=== PATIENT | female | born 1970 | race American Indian/Alaskan Native ===

== ENCOUNTER 2018-02-01 15:05 | Emergency (ER) | payer SELFPAY ==
[2018-02-01 15:30] VITALS: BP 144/89
[2018-02-01 16:13] LABS: Basophils % (Auto) 0.8 % (0.0-1.8); Eosinophils # (Auto) 0.1 K/mm3 (0.0-0.4); Eosinophils % (Auto) 0.9 % (0.0-4.3); Hematocrit 34.1 % (30.3-42.9); Hemoglobin 9.8 gm/dl (10.1-14.3); Lymphocytes # (Auto) 1.8 K/mm3 (1.2-5.4); Lymphocytes % (Auto) 28.8 % (13.4-35.0); Mean Corpuscular HGB Conc 29 % (30-34); Mean Corpuscular Hemoglobin 18 pg (28-32); Mean Corpuscular Volume 64 fl (79-97); Monocytes # (Auto) 0.4 K/mm3 (0.0-0.8); Monocytes % (Auto) 5.7 % (0.0-7.3); Platelet Count 299 K/mm3 (140-440); Red Blood Count 5.31 M/mm3 (3.65-5.03); Red Cell Distribution Width 18.3 % (13.2-15.2)
[2018-02-01 16:18] LABS: Bacteria,Urine 1+ /HPF (Negative); Bilirubin,Urine NEG (Negative); Blood,Urine NEG (Negative); Color,Urine Yellow (Yellow); Protein,Urine <15 mg/dL mg/dL (Negative); Urobilinogen,Urine < 2.0 mg/dL (<2.0)
[2018-02-01 16:22] LABS: BUN/Creatinine Ratio 22; Blood Urea Nitrogen 11 mg/dL (7-17); Calcium 9.3 mg/dL (8.4-10.2); Hemolysis Index 0
== END 2018-02-01 16:02 | disposition left against medical advice (07) ==
LOC: ED 15:05
DX: R73.9 Hyperglycemia, unspecified (principal); Z53.21 Procedure and treatment not carried out due to patient leaving prior to being seen by health care provider
CPT/HCPCS: 36415; 80048; 81001; 82140; 82805; 82962; 85025

== ENCOUNTER 2020-11-06 10:48 | Inpatient (IN) | payer OTHER ==
[2020-11-06 11:39] LABS: Bacteria,Urine 2+ /HPF (Negative); Bilirubin,Urine NEG (Negative); Blood,Urine NEG (Negative); Color,Urine Yellow (Yellow); Mucus,Urine FEW /HPF; Protein,Urine <15 mg/dL mg/dL (Negative); Urobilinogen,Urine < 2.0 mg/dL (<2.0)
[2020-11-06 11:44] LABS: Basophils % (Auto) 0.4 % (0.0-1.8); Eosinophils # (Auto) 0.1 K/mm3 (0.0-0.4); Eosinophils % (Auto) 0.9 % (0.0-4.3); Hemoglobin 10.1 gm/dl (10.1-14.3); Lymphocytes % (Auto) 11.7 % (13.4-35.0); Mean Corpuscular HGB Conc 30 % (30-34); Mean Corpuscular Volume 73 fl (79-97); Monocytes # (Auto) 0.7 K/mm3 (0.0-0.8); Monocytes % (Auto) 7.9 % (0.0-7.3); Platelet Count 392 K/mm3 (140-440); Red Blood Count 4.67 M/mm3 (3.65-5.03)
[2020-11-06 11:58] LABS: Alanine Aminotransferase 8 units/L (7-56); Albumin 3.2 g/dL (3.9-5); Blood Urea Nitrogen 7 mg/dL (7-17); Calcium 9.1 mg/dL (8.4-10.2); Hemolysis Index 18
[2020-11-06 12:03] LABS: BUN/Creatinine Ratio 12
[2020-11-06] MEDS ORDERED: SODIUM CHLORIDE 0.9% 1000 ML 1,000 ML IV ONE (12:12)
[2020-11-06] MEDS ORDERED: MORPHINE 4 MG/1 ML INJ IV ONE ×2 (12:20→14:00)
[2020-11-06] MEDS ORDERED: ONDANSETRON 4 MG/2 ML INJ IV ONE (12:20)
--- NOTE | 2020-11-06 13:03 | Emergency Department Report ---
ED Abdominal Pain HPI - General Chief Complaint: Abdominal Pain Stated Complaint: RT SIDE PAIN/UTI Time Seen by Provider: 11/06/20 11:05 Source: patient Mode of arrival: Ambulatory Limitations: No Limitations - History of Present Illness Initial Comments: 50-year-old female with past medical history of diabetes who presents to the emergency department with complaint of right lower quadrant abdominal pain. Patient reports histories of her tubal ligation. She states she still undergoes her menstrual cycle. She denies history of appendectomy or cholecystectomy. She states her pain is in the right lower quadrant is sharp and radiates from the front to the back. Patient states she has been eating and drinking normally has not had nausea or vomiting. Patient has had some diarrhea with no constipation. She denies any fevers chills or coughing has not had any positive Covid contacts. She thinks she may have a UTI. Severity scale (0 -10): 8 - Related Data Previous Rx's Medication Instructions Recorded Last Taken Type Ibuprofen [Motrin] 800 mg PO Q8HR PRN #15 tablet 09/05/16 Unknown Rx Sulfamethoxazole/Trimethoprim 1 each PO BID #14 tablet 09/05/16 Unknown Rx [Bactrim DS TAB] Allergies Allergy/AdvReac Type Severity Reaction Status Date / Time No Known Allergies Allergy Unverified 09/05/16 01:06 ED Review of Systems ROS: Stated complaint: RT SIDE PAIN/UTI Other details as noted in HPI Constitutional: denies: chills, fever Eyes: denies: eye discharge ENT: denies: throat pain Respiratory: denies: shortness of breath Cardiovascular: denies: chest pain Endocrine: no symptoms reported Gastrointestinal: abdominal pain, diarrhea. denies: nausea, vomiting, constipation Genitourinary: dysuria, frequency Musculoskeletal: denies: back pain Skin: denies: rash Neurological: denies: headache, weakness Psychiatric: denies: anxiety, depression Hematological/Lymphatic: denies: easy bleeding ED Past Medical Hx - Past Medical History Previous Medical History?: Yes Hx Diabetes: Yes - Surgical History Additional Surgical History: tubal ligation - Social History Smoking Status: Never Smoker Substance Use Type: None - Medications Home Medications: Home Medications Medication Instructions Recorded Confirmed Last Taken Type Ibuprofen [Motrin] 800 mg PO Q8HR PRN #15 tablet 09/05/16 Unknown Rx Sulfamethoxazole/Trimethoprim 1 each PO BID #14 tablet 09/05/16 Unknown Rx [Bactrim DS TAB] ED Physical Exam - General Limitations: No Limitations General appearance: alert, in distress - Head Head exam: Present: atraumatic, normocephalic - Eye Eye exam: Present: normal appearance Pupils: Present: normal accommodation - ENT ENT exam: Present: normal exam - Neck Neck exam: Present: normal inspection - Respiratory Respiratory exam: Present: normal lung sounds bilaterally. Absent: respiratory distress - Cardiovascular Cardiovascular Exam: Present: regular rate, normal rhythm, normal heart sounds - GI/Abdominal GI/Abdominal exam: Present: soft, tenderness (RLQ), guarding, rebound - Rectal Rectal exam: Present: deferred - Extremities Exam Extremities exam: Present: normal inspection - Back Exam Back exam: Present: normal inspection - Neurological Exam Neurological exam: Present: alert, oriented X3 - Psychiatric Psychiatric exam: Present: normal affect - Skin Skin exam: Present: warm, dry, intact ED Course Vital Signs 11/06/20 11/06/20 11/06/20 11:06 12:50 13:00 Temperature Pulse Rate 113 H 101 H 98 H Respiratory 18 19 20 Rate Blood Pressure 159/88 135/83 Blood Pressure [Left] O2 Sat by Pulse 97 Oximetry 11/06/20 11/06/20 11/06/20 13:30 15:00 15:30 Temperature Pulse Rate 97 H 92 H Respiratory 21 21 19 Rate Blood Pressure 145/77 122/63 121/69 Blood Pressure [Left] O2 Sat by Pulse 93 93 97 Oximetry 11/06/20 16:51 Temperature 99.7 F H Pulse Rate 88 Respiratory 18 Rate Blood Pressure Blood Pressure 121/78 [Left] O2 Sat by Pulse 99 Oximetry - Reevaluation(s) Reevaluation #1: 11/06/20 13:56 CT scan shows 5 cm abscess near the right renal pole. I informed patient of piedad sherman. I have also ordered blood cultures, lactic acid, Vanc, Zosyn. 11/06/20 19:16 - Consultations Consultation #1: 11/06/20 13:[address] Gerardo who states that we may need urology given this we may need to transfer patient. 11/06/20 19:14 Consultation #2: 11/06/20 19:15 Unfortunately there are no more beds in the [facility]. We spoke to hospitals including [facility] both of which their systems are not accepting transfer. We have frequent discussions with [facility] who states that they cannot accept the patient. We spoke again to Dr. Gerardo that he will drainage. Patient may need urology in the future for backup and likely follow- up. ED Medical Decision Making - Lab Data Result diagrams: 11/06/20 11:14 11/06/20 14:23 - Radiology Data Radiology results: report reviewed - Medical Decision Making Patient is a 50-year-old female who presents to the emergency department hallway of abdominal pain. Patient pain that radiates is localized to the right lower quadrant and radiates from the front to the back. Differential includes appendicitis, nephrolithiasis, pyelonephritis. Patient was evaluated in triage and was noted to be hyperglycemic to the 600s. She does not appear to currently be in DKA however we will give IV fluids and likely some subcu insulin in order to manage her hyperglycemia. CT scan is ordered and patient is receiving IV fluids, Zofran, morphine. Critical care attestation.: If time is entered above; I have spent that time in minutes in the direct care of this critically ill patient, excluding procedure time. ED Disposition Clinical Impression: Perinephric abscess Disposition: [id number] OP ADMIT IP TO THIS HOSP Is pt being admited?: Yes Does the pt Need Aspirin: No Condition: Stable Instructions: Abdominal Pain (ED) Referrals: PRIMARY CARE, [Primary Care Provider] - 3-5 Days
--- NOTE | 2020-11-06 13:16 | Cat Scan Report ---
CT ABDOMEN AND PELVIS WITH CONTRAST INDICATION / CLINICAL INFORMATION: MAIN. TECHNIQUE: Axial CT images were obtained through the abdomen and pelvis after 100 cc Omni [address] scans at this location are performed using CT dose reduction for ALARA by means of automated expos ure control. COMPARISON: None available. FINDINGS: LOWER CHEST: Subsegmental linear opacities in the right lower lung could represent platelike atelecta sis. Upper limits of normal cardiac size. HEPATOBILIARY: Enlarged liver with diffuse fatty infiltration. No focal lesion is identified. Periphe ral calcifications in the gallbladder suggest few 2-3 cm calcified gallstones. No pericholecystic flu id or inflammatory change. No significant biliary ductal dilatation. PANCREAS/SPLEEN/ADRENALS: No significant abnormality. GENITOURINARY: 4.5 x 4.3 x 5.0 cm multiloculated, thick-walled collection adjacent to the lateral asp ect of the inferior right renal pole. Moderate adjacent inflammatory change extending along the retro peritoneal soft tissue planes. Mild right hydroureteronephrosis is present. No nephrolithiasis or marco dence of obstructing stone. Left kidney appears normal. Bladder demonstrates no significant abnormali ty. GASTROINTESTINAL/MESENTERY: Appendix does not appear inflamed and there is no pericecal inflammatory change. No bowel obstruction or inflammation. No free air or significant free fluid. RETROPERITONEUM: Right-sided inflammatory change as described above. No significant adenopathy. REPRODUCTIVE ORGANS: Enlarged fibroid uterus. Conglomeration of fibroids measure approximately 8.6 x 13.0 x 13.8 cm in AP by TV by CC dimension. VASCULAR: No significant abnormality. BODY WALL: No significant abnormality. SKELETAL SYSTEM: No significant abnormality. IMPRESSION: 1. 5 cm multiloculated thick-walled collection at the lateral aspect of the inferior right renal pole concerning for abscess. Additionally, there is moderate surrounding inflammatory change and mild dil atation of the right collecting system and ureter. Findings could represent concomitant polynephritis . Recommend clinical correlation and further follow-up as warranted. 2. Enlarged fatty liver. 3. Very enlarged fibroid uterus. Consider further evaluation as warranted. 4. Peripheral calcifications in the gallbladder possibly representing large peripherally calcified st ones. Consider further evaluation with gallbladder ultrasound. 5. Additional findings as above. Signer Name: Lcu Somers MD Signed: 11/06/2020 1:12 PM Workstation Name: [id number]
[2020-11-06] MEDS ORDERED: INSULIN REGULAR, HUMAN 100 UNIT/ML 3ML VIAL SUB-Q ONE (13:59)
[2020-11-06] MEDS ORDERED: VANCOMYCIN PHARMACY TO DOSE IV SCH (14:00)
[2020-11-06] MEDS ORDERED: VANCOMYCIN 1,500 MG in SODIUM CHLORIDE 0.9% 500 ML 500 ML IV ONE (14:00)
[2020-11-06] MEDS ORDERED: PIPERACIL/TAZOBACTA 4.5/NS 100 4.5 GM/100 ML VIAL IV ONE (14:00)
[2020-11-06] MEDS ORDERED: INSULIN REGULAR, HUMAN 100 UNITS/1 ML ONE (14:15)
[2020-11-06 14:58] LABS: Blood Urea Nitrogen 6 mg/dL (7-17); Calcium 8.6 mg/dL (8.4-10.2); Hemolysis Index 10
[2020-11-06] MEDS ORDERED: VANCOMYCIN 2,000 MG in SODIUM CHLORIDE 0.9% 500 ML 500 ML IV ONE (15:00)
[2020-11-06 15:32] LABS: BUN/Creatinine Ratio 12
--- NOTE | 2020-11-06 18:54 | Event Note ---
Date: 11/06/20 Consuted for right spike-nephric fluid collection. Despite the best efforts of the ER staff, the nearest hospital with urology coverage is in either [place] or [place]. [facility] is willing to consult on the patient. With the understanding that Covid 19 has made it impossible to transfer this patient, recommend that the patient be admitted to medicine and stabilized with plan for aspiration/drainage placement tomorrow.
--- NOTE | 2020-11-06 21:52 | History and Physical Report ---
History of Present Illness Date of examination: 11/06/20 Date of admission: 11/06/20 Chief complaint: Right flank pain History of present illness: 50-year-old -[place] female with history of hypertension and uncontrolled diabetes comes in for right flank pain for the last 2 to 3 days. Patient has intact appendix and gallbladder. Pain radiates from the right lower quadrant to the back. Patient also denies any fever chills or cough. No exposure to coronavirus. Pain is about 5 on a scale of 1-10. Intermittent in nature and dull in nature. No dysuria present. Past Medical History Previous Medical History?: Yes --Diabetes: Yes - Surgical History Additional Surgical History: tubal ligation - Social History Smoking Status: Never Smoker Substance Use Type: None - Medications Home Medications: Home Medications Medication Instructions Recorded Confirmed Last Taken Type Ibuprofen [Motrin] 800 mg PO Q8HR PRN #15 tablet 09/05/16 Unknown Rx Sulfamethoxazole/Trimethoprim 1 each PO BID #14 tablet 09/05/16 Unknown Rx [Bactrim DS TAB] Review of Systems ROS: Stated complaint: RT SIDE PAIN/UTI Other details as noted in HPI Constitutional: denies: chills, fever Eyes: denies: eye discharge ENT: denies: throat pain Respiratory: denies: shortness of breath Cardiovascular: denies: chest pain Endocrine: no symptoms reported Gastrointestinal: abdominal pain, diarrhea. denies: nausea, vomiting, constipation Genitourinary: dysuria, frequency Musculoskeletal: denies: back pain Skin: denies: rash Neurological: denies: headache, weakness Psychiatric: denies: anxiety, depression Hematological/Lymphatic: denies: easy bleeding - Medications and Allergies Allergies Allergy/AdvReac Type Severity Reaction Status Date / Time No Known Allergies Allergy Unverified 09/05/16 01:06 Home Medications Medication Instructions Recorded Confirmed Last Taken Type Ibuprofen [Motrin] 800 mg PO Q8HR PRN #15 tablet 09/05/16 Unknown Rx Sulfamethoxazole/Trimethoprim 1 each PO BID #14 tablet 09/05/16 Unknown Rx [Bactrim DS TAB] Exam - Constitutional Vitals: Temp Pulse Resp BP Pulse Ox 98.6 F 95 H 14 148/77 97 11/06/20 20:09 11/06/20 20:09 11/06/20 20:10 11/06/20 20:09 11/06/20 20:10 General appearance: Present: no acute distress, well-nourished - EENT Eyes: Present: PERRL ENT: hearing intact, clear oral mucosa - Neck Neck: Present: supple, normal ROM - Respiratory Respiratory effort: normal Respiratory: bilateral: CTA - Cardiovascular Heart rate: 88 Rhythm: regular Heart Sounds: Present: S1 & S2. Absent: rub, click - Extremities Extremities: no ischemia, pulses symmetrical, No edema Peripheral Pulses: within normal limits - Abdominal General gastrointestinal: Present: soft, non-tender, non-distended, normal bowel sounds Female genitourinary: Present: normal - Rectal Rectal Exam: deferred - Integumentary Integumentary: Present: clear, warm, dry - Musculoskeletal Musculoskeletal: gait normal, strength equal bilaterally - Psychiatric Psychiatric: appropriate mood/affect, intact judgment & insight - Neurologic Neurologic: CNII-XII intact, moves all extremities - Allied Health Allied health notes reviewed: nursing, case management Results - Labs CBC & Chem 7: 11/06/20 11:14 11/06/20 14:23 Labs: Laboratory Last Values WBC 8.5 K/mm3 (4.5-11.0) 11/06/20 11:14 RBC 4.67 M/mm3 (3.65-5.03) 11/06/20 11:14 Hgb 10.1 gm/dl (10.1-14.3) 11/06/20 11:14 Hct 34.0 % (30.3-42.9) 11/06/20 11:14 MCV 73 fl (79-97) L 11/06/20 11:14 MCH 22 pg (28-32) L 11/06/20 11:14 MCHC 30 % (30-34) 11/06/20 11:14 RDW 17.0 % (13.2-15.2) H 11/06/20 11:14 Plt Count 392 K/mm3 (140-440) 11/06/20 11:14 Lymph % (Auto) 11.7 % (13.4-35.0) L 11/06/20 11:14 Dane % (Auto) 7.9 % (0.0-7.3) H 11/06/20 11:14 Eos % (Auto) 0.9 % (0.0-4.3) 11/06/20 11:14 Baso % (Auto) 0.4 % (0.0-1.8) 11/06/20 11:14 Lymph # (Auto) 1.0 K/mm3 (1.2-5.4) L 11/06/20 11:14 Dane # (Auto) 0.7 K/mm3 (0.0-0.8) 11/06/20 11:14 Eos # (Auto) 0.1 K/mm3 (0.0-0.4) 11/06/20 11:14 Baso # (Auto) 0.0 K/mm3 (0.0-0.1) 11/06/20 11:14 Seg Neutrophils % 79.1 % (40.0-70.0) H 11/06/20 11:14 Seg Neutrophils # 6.7 K/mm3 (1.8-7.7) 11/06/20 11:14 Sodium 132 mmol/L (137-145) L 11/06/20 14:23 Potassium 4.3 mmol/L (3.6-5.0) 11/06/20 14:23 Chloride 94.7 mmol/L (98-107) L 11/06/20 14:23 Carbon Dioxide 30 mmol/L (22-30) 11/06/20 14:23 Anion Gap 12 mmol/L 11/06/20 14:23 BUN 6 mg/dL (7-17) L 11/06/20 14:23 Creatinine 0.5 mg/dL (0.6-1.2) L 11/06/20 14:23 Estimated GFR > 60 ml/min 11/06/20 14:23 BUN/Creatinine Ratio 12 % 11/06/20 14:23 Glucose 520 mg/dL (65-100) H* 11/06/20 14:23 POC Glucose 270 mg/dL (70-105) H 11/06/20 18:25 Lactic Acid 1.30 mmol/L (0.7-2.0) 11/06/20 14:23 Calcium 8.6 mg/dL (8.4-10.2) 11/06/20 14:23 Total Bilirubin < 0.20 mg/dL (0.1-1.2) 11/06/20 11:14 AST 13 units/L (5-40) 11/06/20 11:14 ALT 8 units/L (7-56) 11/06/20 11:14 Alkaline Phosphatase 127 units/L (35-129) 11/06/20 11:14 Total Protein 8.4 g/dL (6.3-8.2) H 11/06/20 11:14 Albumin 3.2 g/dL (3.9-5) L 11/06/20 11:14 Albumin/Globulin Ratio 0.6 % 11/06/20 11:14 HCG, Qual Negative (Negative) 11/06/20 13:04 Urine Color Yellow (Yellow) 11/06/20 Unknown Urine Turbidity Hazy (Clear) 11/06/20 Unknown Urine pH 6.0 (5.0-7.0) 11/06/20 Unknown Ur Specific [place] 1.026 (1.003-1.030) 11/06/20 Unknown Urine Protein <15 mg/dl mg/dL (Negative) 11/06/20 Unknown Urine Glucose (UA) >=500 mg/dL (Negative) 11/06/20 Unknown Urine Ketones Neg mg/dL (Negative) 11/06/20 Unknown Urine Blood Neg (Negative) 11/06/20 Unknown Urine Nitrite Neg (Negative) 11/06/20 Unknown Urine Bilirubin Neg (Negative) 11/06/20 Unknown Urine Urobilinogen < 2.0 mg/dL (<2.0) 11/06/20 Unknown Ur Leukocyte Esterase Sm (Negative) 11/06/20 Unknown Urine WBC (Auto) 40.0 /HPF (0.0-6.0) H 11/06/20 Unknown Urine RBC (Auto) 5.0 /HPF (0.0-6.0) 11/06/20 Unknown U Epithel Cells (Auto) 2.0 /HPF (0-13.0) 11/06/20 Unknown Urine Bacteria (Auto) 2+ /HPF (Negative) 11/06/20 Unknown Urine Mucus Few /HPF 11/06/20 Unknown Microbiology: Microbiology 11/06/20 14:23 Peripheral/Venous Blood Culture - Preliminary Culture in Progress 11/06/20 14:23 Peripheral/Venous Blood Culture - Preliminary Culture in Progress - Imaging and Cardiology Imaging and Cardiology: CT abdomen IMPRESSION: 1. 5 cm multiloculated thick-walled collection at the lateral aspect of the inferior right renal pole concerning for abscess. Additionally, there is moderate surrounding inflammatory change and mild dilatation of the right collecting system and ureter. Findings could represent concomitant polynephritis. Recommend clinical correlation and further follow-up as warranted. 2. Enlarged fatty liver. 3. Very enlarged fibroid uterus. Consider further evaluation as warranted. 4. Peripheral calcifications in the gallbladder possibly representing large peripherally calcified stones. Consider further evaluation with gallbladder ultrasound. 5. Additional findings as above. Duque/IV: IV Catheter Type [Right INT / Saline Lock Antecubital] Assessment and Plan Advance Directives: Yes (+) - Patient Problems (1) Perinephric abscess Current Visit: Yes Status: Acute Plan to address problem: Pending cultures patient was started on IV Zosyn IR consulted for possible drainage of the abscess perinephric abscess Urology also consulted and informed (2) Pyelonephritis Current Visit: Yes Status: Acute Plan to address problem: Patient started on IV Zosyn for the perinephric abscess Check urine cultures (3) Uncontrolled diabetes mellitus Current Visit: Yes Status: Chronic Qualifiers: Diabetes mellitus type: type 2 Plan to address problem: Patient has high blood glucose levels Patient started on long-acting insulin at 35 units and also short-acting insulin every 4 hours at high doses Patient counseled about her high hemoglobin A1c Her hemoglobin A1c is around 10.5 Titration consult regarding dietary education (4) Hyponatremia Current Visit: Yes Status: Acute Plan to address problem: Hyponatremia/pseudohyponatremia Should correct with correction of blood glucose levels (5) DVT prophylaxis Current Visit: Yes Status: Acute (6) Malnutrition Current Visit: Yes Status: Chronic Qualifiers: Malnutrition type: protein-calorie malnutrition Protein-calorie malnutrition severity: mild Qualified Code(s): E44.1 - Mild protein-calorie malnutrition Plan to address problem: Dietary supplements initiated (7) DVT prophylaxis Current Visit: Yes Status: Acute Plan to address problem: On heparin and GI prophylaxis
[2020-11-06] MEDS ORDERED: ACETAMINOPHEN 325 MG TAB PO PRN (22:01)
[2020-11-06] MEDS ORDERED: HYDROmorphone 1 MG/1 ML INJ IV PRN (22:01)
[2020-11-06] MEDS ORDERED: INSULIN LISPRO 100 UNIT/ML VIAL 3 mL SUB-Q ONE (22:07)
[2020-11-06] MEDS: HEPARIN 5,000 UNIT/1 ML VIAL SUB-Q SCH (22:49)
[2020-11-06] MEDS: INSULIN GLARGINE 100 UNITS/ML SUB-Q SCH (23:32)
[2020-11-06] MEDS: FAMOTIDINE 20 MG/2 ML INJ IV SCH (23:56)
[2020-11-06] MEDS: PIPERACIL/TAZOBACTA 4.5/NS 100 4.5 GM/100 ML VIAL IV SCH (23:56)
[2020-11-07] MEDS: PIPERACIL/TAZOBACTA 4.5/NS 100 4.5 GM/100 ML VIAL IV SCH ×2 (06:49→15:12)
[2020-11-07] MEDS ORDERED: MIDAZOLAM 5 MG/5 ML INJ MDV IV ONE (08:28)
[2020-11-07] MEDS ORDERED: fentaNYL 100 MCG/2 ML INJ ONE (08:29)
[2020-11-07] MEDS ORDERED: MIDAZOLAM 5 MG/5 ML INJ MDV IV SCH (08:30)
[2020-11-07] MEDS ORDERED: fentaNYL 100 MCG/2 ML INJ IV SCH (08:30)
[2020-11-07] MEDS ORDERED: SODIUM CHLORIDE 0.9% 500 ML 500 ML ONE (08:30)
--- NOTE | 2020-11-07 10:56 | Consultation ---
History of Present Illness - Reason for Consult Consult date: 11/07/20 renal fluid collection Requesting physician: MANNY GLOVER - History of Present Illness 50-year-old -[place] female with history of hypertension and uncontrolled diabetes comes in for right flank pain for the last 2 to 3 days. Patient has intact appendix and gallbladder. Pain radiates from the right lower quadrant to the back. Patient also denies any fever chills or cough. No exposu re to coronavirus. Pain is about 5 on a scale of 1-10. Intermittent in nature and dull in nature. Patient denies classic dysuria, but reports increasing urinary frequency which is her common complaint when she has urinary tract infections. She has had increased urinary frequency for the last 2 weeks. History of urinary tract infections. No history of pyelonephritis or renal abscesses in the past. Past Medical History Previous Medical History?: Yes --Diabetes: Yes - Surgical History Additional Surgical History: tubal ligation - Social History Smoking Status: Never Smoker Substance Use Type: None Medications and Allergies Allergies Allergy/AdvReac Type Severity Reaction Status Date / Time No Known Allergies Allergy Unverified 09/05/16 01:06 Home Medications Medication Instructions Recorded Confirmed Last Taken Type Ibuprofen [Motrin] 800 mg PO Q8HR PRN #15 tablet 09/05/16 Unknown Rx Sulfamethoxazole/Trimethoprim 1 each PO BID #14 tablet 09/05/16 Unknown Rx [Bactrim DS TAB] Active Meds: Active Medications Acetaminophen (Acetaminophen 325 Mg Tab) 650 mg PO Q4H PRN PRN Reason: Pain MILD(1-3)/Fever >100.5/STEPHENS Famotidine (Famotidine 20 Mg/2 Ml Inj) 20 mg IV BID [facility] Last Admin: 11/06/20 23:56 Dose: 20 mg Documented by: Fentanyl (Fentanyl 100 Mcg/2 Ml Inj) 100 mcg IV ONCE [facility] Stop: 11/07/20 12:00 Heparin Sodium (Porcine) (Heparin 5,000 Unit/1 Ml Vial) 5,000 unit SUB-Q Q12HR [facility] Last Admin: 11/06/20 22:49 Dose: 5,000 unit Documented by: Hydromorphone HCl (Hydromorphone 1 Mg/1 Ml Inj) 0.5 mg IV Q3H PRN PRN Reason: Pain , Severe (7-10) Last Admin: 01/03/21 22:50 Dose: 0.5 mg Documented by: Sodium Chloride (Nacl 0.9% 1000 Ml) 1,000 mls @ 125 mls/hr IV DIRECT RHEA Piperacillin Sod/Tazobactam Sod (Zosyn/Ns 4.5gm/100ml) 4.5 gm in 100 mls @ 200 mls/hr IV Q8HR [facility]; Protocol Last Admin: 11/07/20 06:49 Dose: 200 mls/hr Documented by: Insulin Glargine (Insulin Glargine 100 Units/Ml) 35 units SUB-Q QHS [facility] Last Admin: 11/06/20 23:32 Dose: Not Given Documented by: Ondansetron HCl (Ondansetron 4 Mg/2 Ml Inj) 4 mg IV Q8H PRN PRN Reason: Nausea And Vomiting Oxycodone/Acetaminophen (Oxycodone /Acetaminophen 5-325mg Tab) 1 tab PO Q6H PRN PRN Reason: Pain, Moderate (4-6) Sodium Chloride (Sodium Chloride 0.9% 10 Ml Flush Syringe) 10 ml IV BID [facility] Last Admin: 11/06/20 23:57 Dose: 10 ml Documented by: Sodium Chloride (Sodium Chloride 0.9% 10 Ml Flush Syringe) 10 ml IV PRN PRN PRN Reason: LINE FLUSH Review of Systems All systems: negative (see HPI) Exam - Constitutional Vitals: Temp Pulse Resp BP Pulse Ox 98.6 F 88 19 158/82 96 11/06/20 20:09 11/07/20 09:57 11/07/20 09:57 11/07/20 09:57 11/07/20 09:57 General appearance: Present: mild distress (Right flank pain) - EENT Eyes: Present: EOM intact ENT: hearing intact - Respiratory Respiratory effort: normal - Abdominal General gastrointestinal: Present: other (Right flank pain) - Musculoskeletal Musculoskeletal: strength equal bilaterally - Psychiatric Psychiatric: appropriate mood/affect, cooperative Results - Labs CBC & Chem 7: 11/06/20 11:14 11/06/20 14:23 Labs: Abnormal lab results 11/06/20 11/06/20 11/06/20 Range/Units 11:14 11:14 13:35 MCV 73 L (79-97) fl MCH 22 L (28-32) pg RDW 17.0 H (13.2-15.2) % Lymph % (Auto) 11.7 L (13.4-35.0) % [place] % (Auto) 7.9 H (0.0-7.3) % Lymph # (Auto) 1.0 L (1.2-5.4) K/mm3 Seg Neutrophils % 79.1 H (40.0-70.0) % Sodium 128 L (137-145) mmol/L Chloride 88.6 L (98-107) mmol/L BUN (7-17) mg/dL Creatinine (0.6-1.2) mg/dL Glucose 652 H* (65-100) mg/dL POC Glucose 541 H (70-105) mg/dL Total Protein 8.4 H (6.3-8.2) g/dL Albumin 3.2 L (3.9-5) g/dL Urine WBC (Auto) (0.0-6.0) /HPF 11/06/20 11/06/20 11/06/20 Range/Units 14:23 15:28 18:25 MCV (79-97) fl MCH (28-32) pg RDW (13.2-15.2) % Lymph % (Auto) (13.4-35.0) % [place] % (Auto) (0.0-7.3) % Lymph # (Auto) (1.2-5.4) K/mm3 Seg Neutrophils % (40.0-70.0) % Sodium 132 L (137-145) mmol/L Chloride 94.7 L (98-107) mmol/L BUN 6 L (7-17) mg/dL Creatinine 0.5 L (0.6-1.2) mg/dL Glucose 520 H* (65-100) mg/dL POC Glucose 373 H 270 H (70-105) mg/dL Total Protein (6.3-8.2) g/dL Albumin (3.9-5) g/dL Urine WBC (Auto) (0.0-6.0) /HPF 11/06/20 11/06/20 Range/Units 22:29 Unknown MCV (79-97) fl MCH (28-32) pg RDW (13.2-15.2) % Lymph % (Auto) (13.4-35.0) % [place] % (Auto) (0.0-7.3) % Lymph # (Auto) (1.2-5.4) K/mm3 Seg Neutrophils % (40.0-70.0) % Sodium (137-145) mmol/L Chloride (98-107) mmol/L BUN (7-17) mg/dL Creatinine (0.6-1.2) mg/dL Glucose (65-100) mg/dL POC Glucose 289 H (70-105) mg/dL Total Protein (6.3-8.2) g/dL Albumin (3.9-5) g/dL Urine WBC (Auto) 40.0 H (0.0-6.0) /HPF Assessment and Plan 50-year-old female who presents to the hospital with 3 days of right flank pain and [address] dysuria with [address] findings of a fluid collection in the right perinephric region concerning for perinephric abscess. Patient will be set up for CT drainage of the fluid collections. Risks, benefits, and alternatives discussed. Patient agrees with procedure. After procedure completed, patient will need to flush drain daily with 10 mL normal saline syringes. Recommend repeat CT scan in 2 to 3 days. Patient will need ID consult. Patient will need urology consult.
--- NOTE | 2020-11-07 10:57 | Post Operative Note ---
Date of procedure: 11/07/20 Pre-op diagnosis: Abdominal fluid collection adjacent to the right kidney Post-op diagnosis: same Findings: 20 mL of greenish white purulent material Procedure: CT guided placement of an 8 Fr drain in the right perirenal fluid collection Anesthesia: local (w/ conscious sedation) Surgeon: RAMESH GOFF Estimated blood loss: minimal Condition: stable Disposition: floor
[2020-11-07] MEDS: FAMOTIDINE 20 MG/2 ML INJ IV SCH (12:08)
[2020-11-07] MEDS: HEPARIN 5,000 UNIT/1 ML VIAL SUB-Q SCH (12:09)
[2020-11-07] MEDS: SODIUM CHLORIDE 0.9% 1000 ML 1,000 ML IV SCH ×2 (12:12→21:44)
--- NOTE | 2020-11-07 12:55 | Progress Note ---
Assessment and Plan - Patient Problems (1) Perinephric abscess Current Visit: Yes Status: Acute Plan to address problem: CT of the abdomen and pelvis results reviewed Status post CT-guided I&D of the abscess 20 mL of purulent fluid was removed Drain in place Await culture results Continue Zosyn Pain control (2) Pyelonephritis Current Visit: Yes Status: Acute Plan to address problem: Continue Zosyn UA reviewed No cultures were sent Blood cultures done-results pending (3) Uncontrolled diabetes mellitus Current Visit: Yes Status: Chronic Qualifiers: Diabetes mellitus type: type 2 Plan to address problem: Check A1c History of diabetes foot for years States she takes Metformin and Levemir insulin 8 units twice daily Continue insulin sliding scale coverage Continue basal insulin Hold Metformin as patient got contrast for CT of the abdomen (4) Class II obesity Current Visit: Yes Status: Chronic Plan to address problem: Due to excess calories Counseling on weight loss diet and daily exercise was (5) Hyponatremia Current Visit: Yes Status: Acute Plan to address problem: Mild Secondary to hyperglycemia No indication for hyponatremia work-up Subjective Date of service: 11/07/20 Interval history: History of present illness: 50-year-old -Armenian female with history of hypertension and uncontrolled diabetes comes in for right flank pain for the last 2 to 3 days. Patient has intact appendix and gallbladder. Pain radiates from the right lower quadrant to the back. Patient also denies any fever chills or cough. No exposure to coronavirus. Pain is about 5 on a scale of 1-10. Intermittent in nature and dull in nature. No dysuria present. 1/ patient is alert and oriented, no apparent distress, CT of the abdomen and pelvis and lab results reviewed Status post CT-guided I&D of abdominal /perinephric abscess She denies any fever or chills. Denies chest pain or shortness of breath. Basically offers no specific complaints except intermittent sharp pain from the drain site Objective - Constitutional Vitals: Vital Signs - 12hr 11/07/20 11/07/20 11/07/20 01:42 03:57 06:58 Pulse Rate 87 97 H 91 H Pulse Rate [ Intra-Procedure ] Pulse Rate [ Post-Procedure] Pulse Rate [Pre -Procedure] Respiratory 16 19 19 Rate Respiratory Rate [Intra- Procedure] Respiratory Rate [Post- Procedure] Respiratory Rate [Pre- Procedure] Blood Pressure [Intra- Procedure] Blood Pressure 131/74 122/71 131/71 [Left] Blood Pressure [Post-Procedure ] Blood Pressure [Pre-Procedure] O2 Sat by Pulse 94 96 95 Oximetry O2 Sat by Pulse Oximetry [ Intra-Procedure ] O2 Sat by Pulse Oximetry [Post -Procedure] O2 Sat by Pulse Oximetry [Pre- Procedure] 11/07/20 11/07/20 11/07/20 09:57 10:06 10:16 Pulse Rate Pulse Rate [ 80 Intra-Procedure ] Pulse Rate [ Post-Procedure] Pulse Rate [Pre 88 -Procedure] Respiratory 13 Rate Respiratory 17 Rate [Intra- Procedure] Respiratory Rate [Post- Procedure] Respiratory 19 Rate [Pre- Procedure] Blood Pressure 138/71 [Intra- Procedure] Blood Pressure [Left] Blood Pressure [Post-Procedure ] Blood Pressure 158/82 [Pre-Procedure] O2 Sat by Pulse Oximetry O2 Sat by Pulse 98 Oximetry [ Intra-Procedure ] O2 Sat by Pulse Oximetry [Post -Procedure] O2 Sat by Pulse 96 Oximetry [Pre- Procedure] 11/07/20 11/07/20 11/07/20 10:19 10:22 10:25 Pulse Rate Pulse Rate [ 84 82 79 Intra-Procedure ] Pulse Rate [ Post-Procedure] Pulse Rate [Pre -Procedure] Respiratory Rate Respiratory 13 14 21 Rate [Intra- Procedure] Respiratory Rate [Post- Procedure] Respiratory Rate [Pre- Procedure] Blood Pressure 140/76 134/72 136/79 [Intra- Procedure] Blood Pressure [Left] Blood Pressure [Post-Procedure ] Blood Pressure [Pre-Procedure] O2 Sat by Pulse Oximetry O2 Sat by Pulse 96 96 95 Oximetry [ Intra-Procedure ] O2 Sat by Pulse Oximetry [Post -Procedure] O2 Sat by Pulse Oximetry [Pre- Procedure] 11/07/20 11/07/20 11/07/20 10:30 10:35 10:40 Pulse Rate Pulse Rate [ 79 Intra-Procedure ] Pulse Rate [ 83 79 Post-Procedure] Pulse Rate [Pre -Procedure] Respiratory Rate Respiratory 15 Rate [Intra- Procedure] Respiratory 16 20 Rate [Post- Procedure] Respiratory Rate [Pre- Procedure] Blood Pressure 138/78 [Intra- Procedure] Blood Pressure [Left] Blood Pressure 133/74 130/79 [Post-Procedure ] Blood Pressure [Pre-Procedure] O2 Sat by Pulse Oximetry O2 Sat by Pulse 95 Oximetry [ Intra-Procedure ] O2 Sat by Pulse 97 97 Oximetry [Post -Procedure] O2 Sat by Pulse Oximetry [Pre- Procedure] 11/07/20 11/07/20 11/07/20 10:45 10:50 11:00 Pulse Rate Pulse Rate [ Intra-Procedure ] Pulse Rate [ 78 84 77 Post-Procedure] Pulse Rate [Pre -Procedure] Respiratory Rate Respiratory Rate [Intra- Procedure] Respiratory 19 22 16 Rate [Post- Procedure] Respiratory Rate [Pre- Procedure] Blood Pressure [Intra- Procedure] Blood Pressure [Left] Blood Pressure 142/81 128/73 146/77 [Post-Procedure ] Blood Pressure [Pre-Procedure] O2 Sat by Pulse Oximetry O2 Sat by Pulse Oximetry [ Intra-Procedure ] O2 Sat by Pulse 94 95 95 Oximetry [Post -Procedure] O2 Sat by Pulse Oximetry [Pre- Procedure] General appearance: Present: no acute distress, obese - EENT Eyes: PERRL, EOM intact ENT: hearing intact, clear oral mucosa - Neck Neck: supple, normal ROM - Respiratory Respiratory effort: normal Respiratory: bilateral: CTA - Breasts Breasts: deferred - Cardiovascular Rhythm: regular Heart Sounds: Present: S1 & S2 Extremities: No edema - Gastrointestinal General gastrointestinal: Present: soft, tender (Mildly tender in the right mid abdomen and flank area) Rectal Exam: deferred - Genitourinary Female genitourinary: deferred - Integumentary Integumentary: clear - Musculoskeletal Musculoskeletal: strength equal bilaterally - Neurologic Neurologic: no focal deficits - Psychiatric Psychiatric: appropriate mood/affect - Labs CBC & Chem 7: 11/06/20 11:14 11/06/20 14:23 Labs: Abnormal lab results 11/06/20 11/06/20 11/06/20 Range/Units 13:35 14:23 15:28 Sodium 132 L (137-145) mmol/L Chloride 94.7 L (98-107) mmol/L BUN 6 L (7-17) mg/dL Creatinine 0.5 L (0.6-1.2) mg/dL Glucose 520 H* (65-100) mg/dL POC Glucose 541 H 373 H (70-105) mg/dL 11/06/20 11/06/20 Range/Units 18:25 22:29 Sodium (137-145) mmol/L Chloride (98-107) mmol/L BUN (7-17) mg/dL Creatinine (0.6-1.2) mg/dL Glucose (65-100) mg/dL POC Glucose 270 H 289 H (70-105) mg/dL
[2020-11-07] MEDS: oxyCODONE /ACETAMINOPHEN 5-325MG TAB PO PRN ×2 (13:51→21:55)
[2020-11-08] MEDS: PIPERACIL/TAZOBACTA 4.5/NS 100 4.5 GM/100 ML VIAL IV SCH ×4 (00:07→22:10)
[2020-11-08] MEDS: INSULIN GLARGINE 100 UNITS/ML SUB-Q SCH ×2 (01:39→22:10)
[2020-11-08] MEDS: FAMOTIDINE 20 MG/2 ML INJ IV SCH ×3 (01:40→22:11)
[2020-11-08] MEDS: HEPARIN 5,000 UNIT/1 ML VIAL SUB-Q SCH ×3 (01:41→22:10)
[2020-11-08] MEDS: SODIUM CHLORIDE 0.9% 1000 ML 1,000 ML IV SCH ×2 (06:32→13:53)
[2020-11-08 09:30] LABS: Hematocrit 29.8 % (30.3-42.9); Hemoglobin 9.1 gm/dl (10.1-14.3); Mean Corpuscular HGB Conc 30 % (30-34); Mean Corpuscular Volume 71 fl (79-97); Platelet Count 335 K/mm3 (140-440); Red Blood Count 4.22 M/mm3 (3.65-5.03); Red Cell Distribution Width 16.7 % (13.2-15.2)
[2020-11-08 09:41] LABS: Blood Urea Nitrogen 7 mg/dL (7-17); Calcium 8.7 mg/dL (8.4-10.2); Hemolysis Index 0
[2020-11-08 09:47] LABS: BUN/Creatinine Ratio 14
[2020-11-08] MEDS: INSULIN REGULAR, HUMAN 100 UNIT/ML 3ML VIAL SUB-Q SCH ×2 (11:57→16:27)
--- NOTE | 2020-11-08 15:18 | Progress Note ---
Assessment and Plan -- Perinephric abscess CT of the abdomen and pelvis results reviewed Status post CT-guided I&D of the abscess 20 mL of purulent fluid was removed Drain in place Await culture results Needs repeat CT abdomen pelvis in 2 to 3 days following I&D Continue Zosyn Pain control -- Pyelonephritis Continue Zosyn UA reviewed No cultures were sent Blood cultures done-results pending -- Uncontrolled diabetes mellitus Check A1c History of diabetes foot for years States she takes Metformin and Levemir insulin 8 units twice daily Continue insulin sliding scale coverage Continue basal insulin Hold Metformin as patient got contrast for CT of the abdomen --Class II obesity Due to excess calories Counseling on weight loss diet and daily exercise was -- Hyponatremia Mild, Secondary to hyperglycemia No indication for hyponatremia work-up --DVT prophylaxis, Lovenox Brief History: 50-year-old -Andorran female with history of hypertension and uncontrolled diabetes comes in for right flank pain for the last 2 to 3 days. Patient has intact appendix and gallbladder. Pain radiates from the right lower quadrant to the back. Patient also denies any fever chills or cough. No exposure to coronavirus. Pain is about 5 on a scale of 1-10. Intermittent in nature and dull in nature. No dysuria present. / patient is alert and oriented, no apparent distress, CT of the abdomen and pelvis and lab results reviewed Status post CT-guided I&D of abdominal /perinephric abscess. She denies any fever or chills. Denies chest pain or shortness of breath. Basically offers no specific complaints except intermittent sharp pain from the drain site. 11/08; continue supportive care, IV antibiotics. Patient need repeat CT abdomen either tomorrow or day after tomorrow per IR recommendation. Will consult ID for discharge antibiotic recommendation, follow culture Subjective Date of service: 11/08/20 Interval history: Patient seen and examined. Medical records and medication list reviewed. No acute event overnight noted by the RN. Patient denies any chest pain or difficulty breathing. Patient is tolerating diet. Complains of pain on the right flank area Discussed plan of care at bedside with patient. Objective - Exam Narrative Exam: General appearance: Present: no acute distress, obese - EENT Eyes: PERRL, EOM intact ENT: hearing intact, clear oral mucosa - Neck Neck: supple, normal ROM - Respiratory Respiratory effort: normal Respiratory: bilateral: CTA - Breasts Breasts: deferred - Cardiovascular Rhythm: regular Heart Sounds: Present: S1 & S2 Extremities: No edema - Gastrointestinal General gastrointestinal: Present: soft, tender (Mildly tender in the right flank area) Rectal Exam: deferred - Genitourinary Female genitourinary: deferred - Integumentary Integumentary: clear - Musculoskeletal Musculoskeletal: strength equal bilaterally - Neurologic Neurologic: no focal deficits - Psychiatric Psychiatric: appropriate mood/affect - Constitutional Vitals: Vital Signs - 12hr 11/08/20 11/08/20 11/08/20 03:19 08:00 14:00 Temperature 98.2 F 98.1 F Pulse Rate 81 87 Respiratory 16 18 Rate Blood Pressure 135/62 117/68 O2 Sat by Pulse 95 95 98 Oximetry - Labs CBC & Chem 7: 11/08/20 09:02 11/09/20 13:54 Labs: Abnormal lab results 11/07/20 11/08/20 11/08/20 Range/Units 17:00 01:35 09:02 Hgb 9.1 L (10.1-14.3) gm/dl Hct 29.8 L (30.3-42.9) % MCV 71 L (79-97) fl MCH 22 L (28-32) pg RDW 16.7 H (13.2-15.2) % Carbon Dioxide (22-30) mmol/L Creatinine (0.6-1.2) mg/dL Glucose (65-100) mg/dL POC Glucose 406 H 383 H (70-105) mg/dL 11/08/20 11/08/20 Range/Units 09:02 11:40 Hgb (10.1-14.3) gm/dl Hct (30.3-42.9) % MCV (79-97) fl MCH (28-32) pg RDW (13.2-15.2) % Carbon Dioxide 31 H (22-30) mmol/L Creatinine 0.5 L (0.6-1.2) mg/dL Glucose 385 H (65-100) mg/dL POC Glucose 333 H (70-105) mg/dL
[2020-11-08] MEDS: metFORMIN 500 MG TAB PO SCH (16:26)
[2020-11-08] MEDS: oxyCODONE /ACETAMINOPHEN 5-325MG TAB PO PRN (22:11)
[2020-11-09] MEDS: INSULIN REGULAR, HUMAN 100 UNIT/ML 3ML VIAL SUB-Q SCH ×5 (01:50→22:15)
[2020-11-09] MEDS: SODIUM CHLORIDE 0.9% 1000 ML 1,000 ML IV SCH ×2 (04:16→17:25)
[2020-11-09] MEDS: PIPERACIL/TAZOBACTA 4.5/NS 100 4.5 GM/100 ML VIAL IV SCH ×2 (06:16→16:31)
[2020-11-09] MEDS: INSULIN GLARGINE 100 UNITS/ML SUB-Q SCH ×2 (12:19→23:13)
[2020-11-09] MEDS: HEPARIN 5,000 UNIT/1 ML VIAL SUB-Q SCH ×2 (12:20→22:16)
[2020-11-09] MEDS: FAMOTIDINE 20 MG TAB PO SCH ×2 (12:20→22:16)
--- NOTE | 2020-11-09 12:37 | Cat Scan Report ---
. CT abdomen pelvis wo/w con INDICATION / CLINICAL INFORMATION: Worsening right flank pain. Evaluate abscess TECHNIQUE: Routine CT of the abdomen and pelvis with and without IV contrast. 100 mL IV Omnipaque 300 contrast i njected per protocol All CT scans at this location are performed using CT dose reduction for ALARA by means of automated exposure control. COMPARISON: 11/06/2020 FINDINGS: Abdomen and pelvis: There has been interval placement of a abscess drainage catheter within the right perinephric collection with mild decrease in size of the collection now measuring up to 4.6 cm in di ameter previously about 5.1 cm in greatest diameter. There is some worsening pneumonia identified wit hin the right middle lobe and both lower lobes when compared to the prior exam. There is worsening at electasis. Tiny pleural effusions are present. Cholelithiasis noted. The liver, gallbladder, spleen pancreas adrenal glands and left kidney are unch anged. Severely enlarged fibroid uterus, unchanged. Minimal free pelvic fluid present. No evidence of bowel obstruction. The appendix is grossly unchanged in the interim. Review of bone windows demonstr ates slight thoracolumbar degenerative changes. IMPRESSION: 1. Slight decrease in size of the right perinephric abscess when compared to 11/06/2020. The percutaneo us drainage catheter appears to remain within the collection. 2. Worsening lower lobe pneumonia/atelectasis and tiny pleural effusions since 11/06/2020. 3. Stable incidental findings as noted above. Signer Name: Dionte Phillip MD Signed: 11/09/2020 12:32 PM Workstation Name: [id number]
[2020-11-09 14:43] LABS: Blood Urea Nitrogen 6 mg/dL (7-17); Calcium 8.8 mg/dL (8.4-10.2); Hemolysis Index 0
[2020-11-09 14:46] LABS: BUN/Creatinine Ratio 12
[2020-11-09] MEDS: metFORMIN 500 MG TAB PO SCH (15:21)
[2020-11-09] MEDS: FAMOTIDINE 20 MG/2 ML INJ IV SCH (15:21)
--- NOTE | 2020-11-09 16:24 | Progress Note ---
Assessment and Plan -- Perinephric abscess CT of the abdomen and pelvis results reviewed Status post CT-guided I&D of the abscess 20 mL of purulent fluid was removed Drain in place Await culture results Needs repeat CT abdomen pelvis in 2 to 3 days following I&D - ordered today Continue Zosyn Pain control -- Pyelonephritis Continue Zosyn UA reviewed No cultures were sent Blood cultures done-results pending -- Uncontrolled diabetes mellitus Check A1c History of diabetes foot for years States she takes Metformin and Levemir insulin 8 units twice daily Continue insulin sliding scale coverage Continue basal insulin Hold Metformin as patient got contrast for CT of the abdomen --Class II obesity Due to excess calories Counseling on weight loss diet and daily exercise was -- Hyponatremia Mild, Secondary to hyperglycemia No indication for hyponatremia work-up --DVT prophylaxis, Lovenox Brief History: 50-year-old -Omani female with history of hypertension and uncontrolled diabetes comes in for right flank pain for the last 2 to 3 days. Patient has intact appendix and gallbladder. Pain radiates from the right lower quadrant to the back. Patient also denies any fever chills or cough. No exposure to coronavirus. Pain is about 5 on a scale of 1-10. Intermittent in nature and dull in nature. No dysuria present. 11/07 patient is alert and oriented, no apparent distress, CT of the abdomen and pelvis and lab results reviewed Status post CT-guided I&D of abdominal /perinephric abscess. She denies any fe lonny or chills. Denies chest pain or shortness of breath. Basically offers no specific complaints except intermittent sharp pain from the drain site. 11/08; continue supportive care, IV antibiotics. Patient need repeat CT abdomen either tomorrow or day after tomorrow per IR recommendation. Will consult ID for discharge antibiotic recommendation, follow culture 11/09; wait for ID recommendation, repeat CT abdomen today. will also follow IR recommendation. Subjective Date of service: 11/09/20 Interval history: Patient seen and examined. Medical records and medication list reviewed. No acute event overnight noted by the RN. Patient denies any chest pain or difficulty breathing. Patient is tolerating diet. still has pain on the right flank area Discussed plan of care at bedside with patient. Objective - Exam Narrative Exam: General appearance: Present: no acute distress, obese - EENT Eyes: PERRL, EOM intact ENT: hearing intact, clear oral mucosa - Neck Neck: supple, normal ROM - Respiratory Respiratory effort: normal Respiratory: bilateral: CTA - Breasts Breasts: deferred - Cardiovascular Rhythm: regular Heart Sounds: Present: S1 & S2 Extremities: No edema - Gastrointestinal General gastrointestinal: Present: soft, tender (Mildly tender in the right flank area) Rectal Exam: deferred - Genitourinary Female genitourinary: deferred - Integumentary Integumentary: clear - Musculoskeletal Musculoskeletal: strength equal bilaterally - Neurologic Neurologic: no focal deficits - Psychiatric Psychiatric: appropriate mood/affect - Constitutional Vitals: Vital Signs - 12hr 11/09/20 11/09/20 11/09/20 07:32 10:00 11:44 Temperature 98.1 F 98.6 F Pulse Rate 83 82 Respiratory 20 18 Rate Blood Pressure 156/85 149/87 O2 Sat by Pulse 98 97 97 Oximetry - Labs CBC & Chem 7: 11/08/20 09:02 11/09/20 13:54 Labs: Abnormal lab results 11/08/20 11/09/20 11/09/20 Range/Units 21:01 08:07 11:45 BUN (7-17) mg/dL Creatinine (0.6-1.2) mg/dL Glucose (65-100) mg/dL POC Glucose 284 H 288 H 274 H (70-105) mg/dL 11/09/20 11/09/20 Range/Units 13:54 16:10 BUN 6 L (7-17) mg/dL Creatinine 0.5 L (0.6-1.2) mg/dL Glucose 371 H (65-100) mg/dL POC Glucose 314 H (70-105) mg/dL
--- NOTE | 2020-11-09 19:29 | Consultation ---
History of Present Illness - Reason for Consult Consult date: 11/09/20 - History of Present Illness 50-year-old female past medical history hypertension, diabetes admitted to the hospital after complaining for flank pain, right side for 2 to 3 days prior to admission. She has the pain radiated to her back. She denied any fevers or cough. She denied any dysuria at the time. She was found to have a right perirenal fluid collection and a drain was placed with purulent material obtained Afebrile since admission with a normal white count. Currently on Zosyn. Urine cultures with group B strep, surgical culture from the fluid collection with few gram-positive cocci's in pairs and chains. Imaging personally reviewed: CT abdomen pelvis: Slight decrease in the size of the right perinephric abscess. Drainage catheter in place. Worsening lower lobe pneumonia or atelectasis. Past History Past Medical History: diabetes, hypertension Past Surgical History: No surgical history Social history: no significant social history Family history: no significant family history Medications and Allergies Allergies Allergy/AdvReac Type Severity Reaction Status Date / Time No Known Allergies Allergy Unverified 09/05/16 01:06 Home Medications Medication Instructions Recorded Confirmed Last Taken Type metFORMIN [Glucophage] 500 mg PO BID 11/08/20 11/08/20 Unknown History Active Meds: Active Medications Acetaminophen (Acetaminophen 325 Mg Tab) 650 mg PO Q4H PRN PRN Reason: Pain MILD(1-3)/Fever >100.5/STEPHENS Famotidine (Famotidine 20 Mg Tab) 20 mg PO BID [facility] Last Admin: 11/09/20 12:20 Dose: 20 mg Documented by: Heparin Sodium (Porcine) (Heparin 5,000 Unit/1 Ml Vial) 5,000 unit SUB-Q Q12HR [facility] Last Admin: 11/09/20 12:20 Dose: 5,000 unit Documented by: Hydromorphone HCl (Hydromorphone 1 Mg/1 Ml Inj) 0.5 mg IV Q3H PRN PRN Reason: Pain , Severe (7-10) Last Admin: 11/06/20 22:50 Dose: 0.5 mg Documented by: Sodium Chloride (Nacl 0.9% 1000 Ml) 1,000 mls @ 75 mls/hr IV DIRECT [facility] Last Admin: 11/09/20 17:25 Dose: 125 mls/hr Documented by: Piperacillin Sod/Tazobactam Sod (Zosyn/Ns 4.5gm/100ml) 4.5 gm in 100 mls @ 200 mls/hr IV Q8HR [facility]; Protocol Last Admin: 11/09/20 16:31 Dose: 200 mls/hr Documented by: Insulin Glargine (Insulin Glargine 100 Units/Ml) 35 units SUB-Q QHS [facility] Last Admin: 11/08/20 22:10 Dose: 35 units Documented by: Insulin Glargine (Insulin Glargine 100 Units/Ml) 15 units SUB-Q QAMDIAB [facility] Last Admin: 11/09/20 12:19 Dose: 15 units Documented by: Insulin Human Regular (Insulin Regular, Human 100 Unit/Ml 3ml Vial) 0 unit SUB- Q ACHS [facility]; Protocol Last Admin: 11/09/20 17:25 Dose: 6 unit Documented by: Ondansetron HCl (Ondansetron 4 Mg/2 Ml Inj) 4 mg IV Q8H PRN PRN Reason: Nausea And Vomiting Oxycodone/Acetaminophen (Oxycodone /Acetaminophen 5-325mg Tab) 1 tab PO Q6H PRN PRN Reason: Pain, Moderate (4-6) Last Admin: 11/08/20 22:11 Dose: 1 tab Documented by: Sodium Chloride (Sodium Chloride 0.9% 10 Ml Flush Syringe) 10 ml IV BID [facility] Last Admin: 11/09/20 12:20 Dose: 10 ml Documented by: Sodium Chloride (Sodium Chloride 0.9% 10 Ml Flush Syringe) 10 ml IV PRN PRN PRN Reason: LINE FLUSH Physical Examination - Physical Exam Narrative exam: Physical Exam: Constitutional: Alert, cooperative. No acute distress Head, Ears, Nose: Normocephalic, atraumatic. External ears, nose normal Eyes: Conjunctivae/corneas clear. No icterus. No ptosis. Neck: Supple, no meningeal signs Oral: dentition fair, no thrush Cardiovascular: S1, S2 normal. Respiratory: Good air entry, clear to auscultation bilaterally GI: Soft, non-tender; bowel sounds normal. No peritoneal signs. Musculoskeletal: Right-sided drain Skin: No rash or abscess Hem/Lymphatic: No palpable cervical or supraclavicular nodes. No lymphangitis Psych: Mood ok. Affect normal Neurological: Awake, alert, oriented. No gross abnormality - Constitutional Vitals: Vital Signs Temp Pulse Resp BP Pulse Ox 98.9 F 89 18 159/80 96 11/09/20 15:44 11/09/20 15:44 11/09/20 15:44 11/09/20 15:44 11/09/20 15:44 Temperature -Last 24 Hours Temperature 98.9 F Temperature 98.6 F Temperature 98.1 F Temperature 97.7 F Temperature 97.9 F Temperature 98.5 F Results - Labs CBC & Chem 7: 11/08/20 09:02 11/09/20 13:54 Labs: Abnormal lab results 11/08/20 11/09/20 11/09/20 Range/Units 21:01 08:07 11:45 BUN (7-17) mg/dL Creatinine (0.6-1.2) mg/dL Glucose (65-100) mg/dL POC Glucose 284 H 288 H 274 H (70-105) mg/dL 11/09/20 11/09/20 Range/Units 13:54 16:10 BUN 6 L (7-17) mg/dL Creatinine 0.5 L (0.6-1.2) mg/dL Glucose 371 H (65-100) mg/dL POC Glucose 314 H (70-105) mg/dL Assessment and Plan Cultures: Blood culture no growth to date Urine culture group B strep Surgical culture no growth A/P: 50-year-old female past medical history hypertension, diabetes now with perinephric abscess #Right-sided perinephric abscess: Urine cultures with group B strep, surgical cultures with gram-positive cocci in pairs and chains which likely corroborates with that. Would prefer to keep on IV while drain remains in place. #Diabetes: tight glycemic control for best outcomes. Recs: -Stop Zosyn -Start ceftriaxone 2 g every 24 hours -Would for to keep on IV as long as drain remains in place. Once removed would give orals for a little bit depending on size of abscess that time. -She does appear to be stable, for now if discharging with drain will get midline and do antibiotics at home. Thank you for the consult, we will continue to follow. Rafaela Romero MD [facility] ([facility]) O: [phone] F: [phone]
[2020-11-09] MEDS: cefTRIAXone/NS 2 GM/100 ML 2 GM/100 ML BAG IV SCH (22:16)
[2020-11-09] MEDS: oxyCODONE /ACETAMINOPHEN 5-325MG TAB PO PRN (23:13)
[2020-11-10] MEDS: SODIUM CHLORIDE 0.9% 1000 ML 1,000 ML IV SCH ×4 (01:40→22:22)
[2020-11-10] MEDS: oxyCODONE /ACETAMINOPHEN 5-325MG TAB PO PRN ×2 (06:46→22:14)
[2020-11-10] MEDS ORDERED: INSULIN GLARGINE 100 UNITS/ML SUB-Q SCH (08:00)
[2020-11-10] MEDS: HEPARIN 5,000 UNIT/1 ML VIAL SUB-Q SCH ×2 (09:18→22:16)
[2020-11-10] MEDS: INSULIN REGULAR, HUMAN 100 UNIT/ML 3ML VIAL SUB-Q SCH ×4 (09:18→22:17)
[2020-11-10] MEDS: FAMOTIDINE 20 MG TAB PO SCH ×2 (09:18→22:16)
[2020-11-10] MEDS: INSULIN GLARGINE 100 UNITS/ML SUB-Q SCH ×2 (09:18→22:16)
--- NOTE | 2020-11-10 09:56 | Event Note ---
Date: 11/10/20 Patient with perinephric abscess status post drain placement. Urology coverage not available at this hospital. I the patient's repeat CT scan was reviewed and demonstrates significant decrease in size of the perinephric fluid collection with appropriate positioning of the drainage catheter. From an interventional radiology standpoint, the patient may be discharged however, she will need outpatient follow-up with urology that needs to be scheduled prior to her discharge. Her drainage catheter may be removed as an outpatient.
--- NOTE | 2020-11-10 13:41 | Progress Note ---
Assessment and Plan Cultures: Blood culture no growth to date Urine culture group B strep Surgical culture no growth A/P: 50-year-old female past medical history hypertension, diabetes now with perinephric abscess #Right-sided perinephric abscess: Urine cultures with group B strep, surgical cultures with gram-positive cocci in pairs and chains which likely corroborates with that. Would prefer to keep on IV while drain remains in place. #Diabetes: tight glycemic control for best outcomes. Recs: -ceftriaxone 2 g every 24 hours -Sounds like she will be discharged with the drain -Ordered midline and case management consulted for ceftriaxone 2g q24h until 11/20/2020, then can be followed with Augmentin 875/125mg q12h for 1 further week. Thank you for the consult, we will continue to follow. Rafaela Romero MD [facility] ([facility]) O: [phone] F: [phone] Subjective Date of service: 11/10/20 Interval history: Afebrile, no acute change. Noted urology coverage not available at this hospital. Objective - Exam Narrative Exam: Physical Exam: Constitutional: Alert, cooperative. No acute distress Head, Ears, Nose: Normocephalic, atraumatic. External ears, nose normal Eyes: Conjunctivae/corneas clear. No icterus. No ptosis. Neck: Supple, no meningeal signs Oral: dentition fair, no thrush Cardiovascular: S1, S2 normal. Respiratory: Good air entry, clear to auscultation bilaterally GI: Soft, non-tender; bowel sounds normal. No peritoneal signs. Musculoskeletal: Right-sided drain Skin: No rash or abscess Hem/Lymphatic: No palpable cervical or supraclavicular nodes. No lymphangitis Psych: Mood ok. Affect normal Neurological: Awake, alert, oriented. No gross abnormality - Constitutional Vitals: Vital Signs Temp Pulse Resp BP Pulse Ox 98.0 F 79 18 154/83 97 11/10/20 11:51 11/10/20 11:51 11/10/20 11:51 11/10/20 11:51 11/10/20 11:51 Temperature -Last 24 Hours Temperature 98.0 F Temperature 97.6 F Temperature 97.6 F Temperature 98.4 F Temperature 98.6 F Temperature 98.9 F - Labs CBC & Chem 7: 11/08/20 09:02 11/09/20 13:54 Labs: Abnormal lab results 11/09/20 11/09/20 11/09/20 Range/Units 13:54 16:10 20:36 BUN 6 L (7-17) mg/dL Creatinine 0.5 L (0.6-1.2) mg/dL Glucose 371 H (65-100) mg/dL POC Glucose 314 H 199 H (70-105) mg/dL 11/10/20 Range/Units 11:50 BUN (7-17) mg/dL Creatinine (0.6-1.2) mg/dL Glucose (65-100) mg/dL POC Glucose 152 H (70-105) mg/dL
[2020-11-10] MEDS: ONDANSETRON 4 MG/2 ML INJ IV PRN ×2 (15:38→22:14)
--- NOTE | 2020-11-10 18:58 | Progress Note ---
Assessment and Plan -- Perinephric abscess CT of the abdomen and pelvis results reviewed Status post CT-guided I&D of the abscess 20 mL of purulent fluid was removed Drain in place Await culture results s/p repeat CT abdomen pelvis on 11/09 showed decrease in size of abscess Changed Zosyn to rocephin - need iv abx at home Pain control -- Pyelonephritis Continue Zosyn UA reviewed No cultures were sent Blood cultures done-results pending -- Uncontrolled diabetes mellitus A1c 15.4 History of diabetes foot for years States she takes Metformin and Levemir insulin 8 units twice daily Continue insulin sliding scale coverage, Continue basal insulin - increased dose to better glycemic control Hold Metformin as patient got contrast for CT of the abdomen --Class II obesity Due to excess calories Counseling on weight loss diet and daily exercise was -- Hyponatremia Mild, Secondary to hyperglycemia No indication for hyponatremia work-up --DVT prophylaxis, Lovenox Brief History: 50-year-old -[place] female with history of hypertension and uncontrolled diabetes comes in for right flank pain for the last 2 to 3 days. Patient has intact appendix and gallbladder. Pain radiates from the right lower quadrant to the back. Patient also denies any fever chills or cough. No exposure to coronavirus. Pain is about 5 on a scale of 1-10. Intermittent in nature and dull in nature. No dysuria present. 11/07 patient is alert and oriented, no apparent distress, CT of the abdomen and pelvis and lab results reviewed Status post CT-guided I&D of abdominal /perinephric abscess. She denies any fever or chills. Denies chest pain or shortness of breath. Basically offers no specific complaints except intermittent sharp pain from the drain site. 11/08; continue supportive care, IV antibiotics. Patient need repeat CT abdomen either tomorrow or day after tomorrow per IR recommendation. Will consult ID for discharge antibiotic recommendation, follow culture 11/09; wait for ID recommendation, repeat CT abdomen today. will also follow IR recommendation. 11/10: need iv abx at home till 11/20. midline order placed. patient has no insurance - working on iv abx setup. She will also need to f/u with urologist as outpt. Subjective Date of service: 11/10/20 Interval history: Patient seen and examined. Medical records and medication list reviewed. No acute event overnight noted by the RN. Patient denies any chest pain or difficulty breathing. Patient is tolerating diet. still has pain on the right flank area Discussed plan of care at bedside with patient. Objective - Exam Narrative Exam: General appearance: Present: no acute distress, obese - EENT Eyes: PERRL, EOM intact ENT: hearing intact, clear oral mucosa - Neck Neck: supple, normal ROM - Respiratory Respiratory effort: normal Respiratory: bilateral: CTA - Breasts Breasts: deferred - Cardiovascular Rhythm: regular Heart Sounds: Present: S1 & S2 Extremities: No edema - Gastrointestinal General gastrointestinal: Present: soft, tender (Mildly tender in the right flank area) Rectal Exam: deferred - Genitourinary Female genitourinary: deferred - Integumentary Integumentary: clear - Musculoskeletal Musculoskeletal: strength equal bilaterally - Neurologic Neurologic: no focal deficits - Psychiatric Psychiatric: appropriate mood/affect - Constitutional Vitals: Vital Signs - 12hr 11/10/20 11/10/20 11/10/20 07:43 11:51 16:30 Temperature 97.6 F 98.0 F 98 F Pulse Rate 76 79 98 H Respiratory 18 18 18 Rate Blood Pressure 145/76 154/83 Blood Pressure 159/86 [Left] O2 Sat by Pulse 95 97 Oximetry - Labs CBC & Chem 7: 11/08/20 09:02 11/09/20 13:54 Labs: Abnormal lab results 11/09/20 11/10/20 11/10/20 Range/Units 20:36 11:50 15:36 POC Glucose 199 H 152 H 143 H (70-105) mg/dL
[2020-11-10] MEDS: cefTRIAXone/NS 2 GM/100 ML 2 GM/100 ML BAG IV SCH (22:15)
[2020-11-11] MEDS: SODIUM CHLORIDE 0.9% 1000 ML 1,000 ML IV SCH (06:13)
[2020-11-11] MEDS: INSULIN REGULAR, HUMAN 100 UNIT/ML 3ML VIAL SUB-Q SCH ×4 (08:30→21:29)
[2020-11-11] MEDS: INSULIN GLARGINE 100 UNITS/ML SUB-Q SCH ×2 (08:59→21:30)
[2020-11-11] MEDS: FAMOTIDINE 20 MG TAB PO SCH ×2 (09:03→21:31)
[2020-11-11] MEDS: HEPARIN 5,000 UNIT/1 ML VIAL SUB-Q SCH ×2 (09:05→21:32)
--- NOTE | 2020-11-11 13:25 | Progress Note ---
Assessment and Plan Cultures: Blood culture no growth to date Urine culture group B strep Surgical culture no growth A/P: 50-year-old female past medical history hypertension, diabetes now with perinephric abscess #Right-sided perinephric abscess: Urine cultures with group B strep, surgical cultures with gram-positive cocci in pairs and chains which likely corroborates with that. Would prefer to keep on IV while drain remains in place. #Diabetes: tight glycemic control for best outcomes. Recs: -ceftriaxone 2 g every 24 hours -Sounds like she will be discharged with the drain -Ordered midline and case management consulted for ceftriaxone 2g q24h until 11/20/2020, then can be followed with Augmentin 875/125mg q12h for 1 further week. -Follow up with me in clinic in 1-2 weeks OK to DC when midline and home antibiotics arranged. Thank you for the consult, we will sign off. Please call with questions. Rafaela Romero MD [facility] ([facility]) O: [phone] F: [phone] Subjective Date of service: 11/11/20 Interval history: Afebrile, no acute change. Objective - Exam Narrative Exam: Physical Exam: Constitutional: Alert, cooperative. No acute distress Head, Ears, Nose: Normocephalic, atraumatic. Eyes: Conjunctivae/corneas clear. No icterus. No ptosis. Neck: Supple, no meningeal signs Oral: dentition fair, no thrush Cardiovascular: S1, S2 normal. Respiratory: Good air entry, clear to auscultation bilaterally GI: Soft, non-tender; bowel sounds normal. No peritoneal signs. Musculoskeletal: Right-sided drain Skin: No rash or abscess Hem/Lymphatic: No palpable cervical or supraclavicular nodes. No lymphangitis Psych: Mood ok. Affect normal Neurological: Awake, alert, oriented. No gross abnormality - Constitutional Vitals: Vital Signs Temp Pulse Resp BP Pulse Ox 98.4 F 81 18 165/97 97 11/11/20 11:45 11/11/20 11:45 11/11/20 11:45 11/11/20 11:45 11/11/20 11:45 Temperature -Last 24 Hours Temperature 98.4 F Temperature 97.9 F Temperature 97.8 F Temperature 98.4 F Temperature 98.4 F Temperature 98 F - Labs CBC & Chem 7: 11/08/20 09:02 11/09/20 13:54 Labs: Abnormal lab results 11/10/20 11/10/20 11/11/20 Range/Units 15:36 21:18 11:52 POC Glucose 143 H 211 H 131 H (70-105) mg/dL
--- NOTE | 2020-11-11 15:56 | Discharge Summary ---
Providers - Providers Date of Admission: 11/06/20 19:11 Date of discharge: 11/12/20 Attending physician: RICK LIVE 11/06/20 19:13 Consult to Physician [CONS] Urgent Comment: Consulting Provider: RAMESH AKERS Physician Instructions: Reason For Exam: abscess 11/08/20 08:00 Consult to Physician [CONS] Routine Comment: Consulting Provider: DUONG MARLOW Physician Instructions: Reason For Exam: renal abscess, drain already placed 11/08/20 16:52 Consult to Physician [CONS] Routine Comment: Consulting Provider: FLORENTNIO ALVARENGA Physician Instructions: Reason For Exam: abx recommendation 11/10/20 10:39 Midline [Consult to PICC Line RN] [CONS] Routine Reason For Exam: need home abx Type Line:: Midline 11/10/20 10:40 Consult to Case Management [CONS] Routine Services Needed at Discharge: Other Notified:: case management Additional Physician Instructions: need home iv abx 11/10/20 13:42 Consult to Case Management [CONS] Routine Services Needed at Discharge: Home Health Services Notified:: case management Additional Physician Instructions: Rafaela Alvarenga MD [facility] ([facility]) M: [phone] O: [phone] F: [phone] Outpatient parenteral antibiotic therapy orders Diagnosis: perinephric abscess Antibiotic administration: ceftriaxone 2g q24h until 11/20/2020 Line: midline Lab monitoring: CBC with differential, BUN, creatinine, LFTs, vancomycin trough, CRP once per week preferably on Saturday or Saturday For critical labs, call office: [phone] Rafaela Alvarenga Primary care physician: RADIOLOGIC TECHNOLOGIST [employer] Hospitalization Condition: Stable Hospital course: Discharge diagnosis: -- Perinephric abscess CT of the abdomen and pelvis results reviewed Status post CT-guided I&D of the abscess 20 mL of purulent fluid was removed Drain in place Await culture results s/p repeat CT abdomen pelvis on 11/09 showed decrease in size of abscess Changed Zosyn to rocephin - need iv abx at home Pain control --HTN, placed on norvasc, lisinopril and hydralazine -- Pyelonephritis Continue Zosyn UA reviewed No cultures were sent Blood cultures done-results pending -- Uncontrolled diabetes mellitus A1c 15.4 History of diabetes foot for years States she takes Metformin and Levemir insulin 8 units twice daily Continue insulin sliding scale coverage, Continue basal insulin - increased dose to better glycemic control Hold Metformin as patient got contrast for CT of the abdomen --Class II obesity Due to excess calories Counseling on weight loss diet and daily exercise was -- Hyponatremia Mild, Secondary to hyperglycemia No indication for hyponatremia work-up --DVT prophylaxis, Lovenox Disposition: [id number] HOME UNDER HOME [facility] Time spent for discharge: 34 minutes Core Measure Documentation - Palliative Care Palliative Care/ Comfort Measures: Not Applicable - Core Measures Any of the following diagnoses?: none Exam - Physical Exam Narrative exam: General appearance: Present: no acute distress, obese - EENT Eyes: PERRL, EOM intact ENT: hearing intact, clear oral mucosa - Neck Neck: supple, normal ROM - Respiratory Respiratory effort: normal Respiratory: bilateral: CTA - Breasts Breasts: deferred - Cardiovascular Rhythm: regular Heart Sounds: Present: S1 & S2 Extremities: No edema - Gastrointestinal General gastrointestinal: Present: soft, tender (Mildly tender in the right flank area) Rectal Exam: deferred - Genitourinary Female genitourinary: deferred - Integumentary Integumentary: clear - Musculoskeletal Musculoskeletal: strength equal bilaterally - Neurologic Neurologic: no focal deficits - Psychiatric Psychiatric: appropriate mood/affect - Constitutional Vitals: Temp Pulse Resp BP Pulse Ox 98.4 F 81 18 161/80 97 11/11/20 11:45 11/11/20 11:45 11/11/20 11:45 11/11/20 11:45 11/11/20 11:45 Plan Activity: advance as tolerated Weight Bearing Status: Weight Bear as Tolerated Diet: low fat, low salt Wound: per your surgeon's advice Additional Instructions: ceftriaxone 2g q24h until 11/20/2020, then Augmentin 875/125mg q12h for 1 further week. F/u with Urologist and IR in 10 days. Follow up with: DUONG MARLOW MD [Staff Physician] - 7 Days RAMESH GOFF MD [Staff Physician] - 7 Days PRIMARY CARE, [Primary Care Provider] - 3-5 Days ALEC GRIFFITHS MD [Staff Physician] - 7 Days Prescriptions: Insulin Glargine [Lantus VIAL] 35 units SUB-Q QHS #1 vial amLODIPine 10 mg PO QDAY #30 tablet hydrALAZINE [Apresoline TAB] 50 mg PO Q8HR #90 tablet Amoxicillin/Potassium Clav [Augmentin 875-125 Tablet] 1 each PO BID #14 tablet Insulin Regular, Human [HumuLIN R] 0 unit SUB-Q ACHS #1 vial Insulin Glargine [Lantus VIAL] 15 units SUB-Q QAMDIAB #1 vial oxyCODONE /ACETAMINOPHEN [Percocet 5/325 mg] 1 tab PO Q6H PRN #10 tablet PRN Reason: Pain, Moderate (4-6) lisinopriL [Zestril TAB] 20 mg PO QDAY #30 tablet
[2020-11-11] MEDS: oxyCODONE /ACETAMINOPHEN 5-325MG TAB PO PRN (16:08)
[2020-11-11] MEDS ORDERED: hydrALAZINE 10 MG TAB PO PRN (18:13)
[2020-11-11] MEDS: amLODIPine 10 MG TAB PO SCH (18:34)
[2020-11-11] MEDS: cefTRIAXone/NS 2 GM/100 ML 2 GM/100 ML BAG IV SCH (21:31)
[2020-11-11] MEDS: hydrALAZINE 25 MG TAB PO SCH (21:32)
[2020-11-11] MEDS ORDERED: hydrALAZINE 25 MG TAB PO SCH (22:00)
[2020-11-12] MEDS: hydrALAZINE 25 MG TAB PO SCH ×2 (05:23→13:19)
[2020-11-12] MEDS: INSULIN REGULAR, HUMAN 100 UNIT/ML 3ML VIAL SUB-Q SCH ×2 (08:30→12:33)
[2020-11-12] MEDS: amLODIPine 10 MG TAB PO SCH (10:04)
[2020-11-12] MEDS: FAMOTIDINE 20 MG TAB PO SCH (10:04)
[2020-11-12] MEDS: INSULIN GLARGINE 100 UNITS/ML SUB-Q SCH (11:25)
[2020-11-12] MEDS: HEPARIN 5,000 UNIT/1 ML VIAL SUB-Q SCH (11:25)
[2020-11-12] MEDS ORDERED: LISINOPRIL 20 MG TAB PO SCH (12:00)
[2020-11-12 14:31] VITALS: BP 161/96
--- NOTE | 2020-11-12 14:34 | Progress Note ---
Assessment and Plan -- Perinephric abscess CT of the abdomen and pelvis results reviewed Status post CT-guided I&D of the abscess 20 mL of purulent fluid was removed Drain in place Await culture results s/p repeat CT abdomen pelvis on 11/09 showed decrease in size of abscess Changed Zosyn to rocephin - need iv abx at home Pain control -- Pyelonephritis Continue Zosyn UA reviewed No cultures were sent Blood cultures done-results pending -- Uncontrolled diabetes mellitus A1c 15.4 History of diabetes foot for years States she takes Metformin and Levemir insulin 8 units twice daily Continue insulin sliding scale coverage, Continue basal insulin - increased dose to better glycemic control Hold Metformin as patient got contrast for CT of the abdomen --HTN, uncontrolled today BP at 200s today, will add norvasc, hydralazine cont to monitor BP --Class II obesity Due to excess calories Counseling on weight loss diet and daily exercise was -- Hyponatremia Mild, Secondary to hyperglycemia No indication for hyponatremia work-up --DVT prophylaxis, Lovenox Brief History: 50-year-old -[place] female with history of hypertension and uncontrolled diabetes comes in for right flank pain for the last 2 to 3 days. Patient has intact appendix and gallbladder. Pain radiates from the right lower quadrant to the back. Patient also denies any fever chills or cough. No exposure to coronavirus. Pain is about 5 on a scale of 1-10. Intermittent in nature and dull in nature. No dysuria present. CT abdomen showed perinephric abscess -admitted for further evaluation and Mx. 11/07 patient is alert and oriented, no apparent distress, CT of the abdomen and pelvis and lab results reviewed Status post CT-guided I&D of abdominal /perinephric abscess. She denies any fever or chills. Denies chest pain or shortness of breath. Basically offers no specific complaints except intermittent sharp pain from the drain site. 11/08; continue supportive care, IV antibiotics. Patient need repeat CT abdomen either tomorrow or day after tomorrow per IR recommendation. Will consult ID for discharge antibiotic recommendation, follow culture 11/09; wait for ID recommendation, repeat CT abdomen today. will also follow IR recommendation. 11/10: need iv abx at home till 11/20. midline order placed. patient has no insurance - working on iv abx setup. She will also need to f/u with urologist as outpt. 11/11: BP at 200s, will add norvasc, hydralazine. cont to monitor BP. if BP stable possible d/c tomorrow Subjective Date of service: 11/11/20 Interval history: Patient seen and examined. Medical records and medication list reviewed. No acute event overnight noted by the RN. Patient denies any chest pain or difficulty breathing. Patient is tolerating diet. Improved right flank area, SBP at 200s today Discussed plan of care at bedside with patient. Objective - Exam Narrative Exam: General appearance: Present: no acute distress, obese - EENT Eyes: PERRL, EOM intact ENT: hearing intact, clear oral mucosa - Neck Neck: supple, normal ROM - Respiratory Respiratory effort: normal Respiratory: bilateral: CTA - Breasts Breasts: deferred - Cardiovascular Rhythm: regular Heart Sounds: Present: S1 & S2 Extremities: No edema - Gastrointestinal General gastrointestinal: Present: soft, (Mildly tender in the right flank area) Rectal Exam: deferred - Genitourinary Female genitourinary: deferred - Integumentary Integumentary: clear - Musculoskeletal Musculoskeletal: strength equal bilaterally - Neurologic Neurologic: no focal deficits - Psychiatric Psychiatric: appropriate mood/affect - Constitutional Vitals: Vital Signs - 12hr 11/12/20 11/12/20 11/12/20 04:57 09:59 10:00 Temperature 98.3 F 98.5 F Pulse Rate 91 H 107 H Respiratory 18 18 18 Rate Blood Pressure 142/77 168/92 O2 Sat by Pulse 96 99 96 Oximetry 11/12/20 11/12/20 11/12/20 10:04 12:34 13:19 Temperature 98.6 F Pulse Rate 106 H 102 H 100 H Respiratory 18 Rate Blood Pressure 168/92 172/95 172/92 O2 Sat by Pulse 98 Oximetry - Labs CBC & Chem 7: 11/08/20 09:02 11/09/20 13:54 Labs: Abnormal lab results 11/11/20 11/12/20 11/12/20 Range/Units 20:33 08:46 12:29 POC Glucose 269 H 120 H 169 H (70-105) mg/dL
== END 2020-11-12 16:41 | disposition home health service (06) | DRG 690 ==
LOC: ED 10:48 → 3A 19:11 → 4A 11-07 22:42
PROVIDERS: ADMIT Internal Medicine; ATTEND Internal Medicine
PROC: 0T9030Z Drainage of Right Kidney with Drainage Device, Percutaneous Approach (ICD-10-PCS; principal; 2020-11-07)
PROC: 05HY33Z Insertion of Infusion Device into Upper Vein, Percutaneous Approach (ICD-10-PCS; 2020-11-11)
DX: N15.1 Renal and perinephric abscess (principal); E87.1 Hypo-osmolality and hyponatremia; E44.1 Mild protein-calorie malnutrition; Z68.41 Body mass index [BMI] 40.0-44.9, adult; E11.65 Type 2 diabetes mellitus with hyperglycemia; Z79.899 Other long term (current) drug therapy; Z98.51 Tubal ligation status; Z79.84 Long term (current) use of oral hypoglycemic drugs
CPT/HCPCS: 10160; 36415; 74177; 74178; 77012; 80048; 80053; 81001; 82140; 82962; 83036; 84703; 85025; 85027; 87040; 87086; 87116; 88112; 88305; 88342; 94760; 96365; 96375; G0378; C1769; J0696; J1170; J1644; J1815; J2250; J2270; J2405; J2543; J3010; J3370; J7030; J7040; Q9967

== ENCOUNTER 2020-11-18 13:29 | Emergency (ER) | payer SELFPAY | END 2020-11-18 14:08 | disposition left against medical advice (07) | LOC: ED 13:29 | DX: M79.602 Pain in left arm (principal); Z53.21 Procedure and treatment not carried out due to patient leaving prior to being seen by health care provider ==

== ENCOUNTER 2020-11-20 10:33 | Emergency (ER) | payer SELFPAY ==
--- NOTE | 2020-11-20 12:00 | Emergency Department Report ---
HPI - General Chief Complaint: Medical Clearance Time Seen by Provider: 11/20/20 11:46 - HPI HPI: This is a 50-year-old female who presents to the emergency department to get her left midline IV removed. The patient was admitted here on 11/06 through 11/12 for a right-sided perinephric abscess. The patient says that she has finished all of her antibiotics. She denies any fever or any signs/symptoms of infection around this midline IV. She also has a history of insulin-dependent diabetes. ED Past Medical Hx - Past Medical History Previous Medical History?: Yes Hx Diabetes: Yes Hx Deep Vein Thrombosis: No Additional medical history: Mid line - Surgical History Past Surgical History?: Yes Hx Pacemaker: No Hx Internal Defibrillator: No Additional Surgical History: tubal ligation - Social History Smoking Status: Never Smoker Substance Use Type: Prescribed - Medications Home Medications: Home Medications Medication Instructions Recorded Confirmed Last Taken Type metFORMIN [Glucophage] 500 mg PO BID 11/08/20 11/08/20 Unknown History Amoxicillin/Potassium Clav 1 each PO BID #14 tablet 11/11/20 Unknown Rx [Augmentin 875-125 Tablet] Insulin Glargine [Lantus VIAL] 15 units SUB-Q QAMDIAB #1 vial 11/11/20 Unknown Rx Insulin Glargine [Lantus VIAL] 35 units SUB-Q QHS #1 vial 11/11/20 Unknown Rx Insulin Regular, Human [HumuLIN R] 0 unit SUB-Q ACHS #1 vial 11/11/20 Unknown Rx amLODIPine 10 mg PO QDAY #30 tablet 11/11/20 Unknown Rx hydrALAZINE [Apresoline TAB] 50 mg PO Q8HR #90 tablet 11/11/20 Unknown Rx oxyCODONE /ACETAMINOPHEN [Percocet 1 tab PO Q6H PRN #10 tablet 11/11/20 Unknown Rx 5/325 mg] lisinopriL [Zestril TAB] 20 mg PO QDAY #30 tablet 11/12/20 Unknown Rx ED Review of Systems ROS: Stated complaint: MID LINE TAKEN OUT Other details as noted in HPI Comment: All other systems reviewed and negative Constitutional: denies: chills, fever Respiratory: denies: shortness of breath Cardiovascular: denies: chest pain, edema Musculoskeletal: denies: arthralgia, myalgia Skin: denies: rash, lesions Neurological: denies: numbness, paresthesias Physical Exam - Physical Exam Physical Exam: GENERAL: The patient is well-developed well-nourished. HENT: Normocephalic. Atraumatic. Patient has moist mucous membranes. EYES: Extraocular motions are intact. NECK: Supple. Trachea is midline. ABDOMEN: Abdomen is non-distended. SKIN: Skin is warm and dry. The left upper extremity PICC line is in place without any surrounding erythema, bleeding, discharge seen. NEURO: The patient is awake, alert, and oriented. The patient is cooperative. The patient has no focal neurologic deficits. Normal speech. MUSCULOSKELETAL: There is no tenderness or deformity. There is no limitation range of motion. Radial pulse +2/4 and capillary refill less than 2 seconds to the affected left upper extremity. ED Medical Decision Making - Medical Decision Making This patient presents just to have her midline catheter/PICC removed after finishing all of her antibiotics for a perinephric abscess. She has no complaints of any pain, swelling, or signs and symptoms of infection. The IV team successfully moved to the PICC line and the patient was discharged home. Critical Care Time: No Critical care attestation.: If time is entered above; I have spent that time in minutes in the direct care of this critically ill patient, excluding procedure time. ED Disposition Clinical Impression: PICC (peripherally inserted central catheter) removal Disposition: TO HOME OR SELFCARE Is pt being admited?: No Condition: Stable Instructions: PICC Removal, Adult Additional Instructions: Please follow-up with a primary care physician in the next few days. Return to the emergency department with any worsening of your symptoms, new or concerning symptoms not addressed during this current emergency department visit, or with any acute distress. Referrals: PRIMARY CARE, [Primary Care Provider] - 2-3 Days
[2020-11-20 12:33] VITALS: BP 153/87
[2020-11-20] MEDS ORDERED: ACETAMINOPHEN 325 MG TAB ONE (12:35)
== END 2020-11-20 14:14 | disposition home or self-care (01) ==
LOC: ED 10:33
DX: Z45.2 Encounter for adjustment and management of vascular access device (principal); E11.9 Type 2 diabetes mellitus without complications; Z79.899 Other long term (current) drug therapy; Z98.51 Tubal ligation status
CPT/HCPCS: 99281

== ENCOUNTER 2021-04-24 10:07 | Emergency (ER) | payer OTHER ==
[2021-04-24 11:49] VITALS: BP 144/92
[2021-04-24] MEDS ORDERED: IBUPROFEN 800 MG TAB PO ONE (12:12)
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
--- NOTE | 2021-04-24 13:03 | XRay Report ---
RIGHT WRIST 4 VIEWS INDICATION / CLINICAL INFORMATION: rt wrist/pip of thumb swelling pain COMPARISON: None available. FINDINGS: BONES and JOINT(S): No acute fracture or subluxation. No significant arthritis. SOFT TISSUES: No significant abnormality. ADDITIONAL FINDINGS: None. IMPRESSION: 1. No acute findings. Signer Name: Austin Ibarra MD Signed: 04/24/2021 12:58 PM Workstation Name: [id number]
== END 2021-04-24 13:35 | disposition home or self-care (01) ==
LOC: ED 10:07
DX: S69.91XA Unspecified injury of right wrist, hand and finger(s), initial encounter (principal); I10 Essential (primary) hypertension; E11.9 Type 2 diabetes mellitus without complications; Z98.51 Tubal ligation status; Z79.899 Other long term (current) drug therapy; V89.2XXA Person injured in unspecified motor-vehicle accident, traffic, initial encounter; Y93.89 Activity, other specified; Y92.488 Other paved roadways as the place of occurrence of the external cause; Y99.8 Other external cause status
CPT/HCPCS: 99283